=== PATIENT | female | born 1980 | race Caucasian/White ===

== ENCOUNTER 2016-06-15 19:28 | Emergency (ER) | payer OTHER ==
[2016-06-15] MEDS ORDERED: DIPHTH,PERTUSS(ACELL),TET VAC 0.5 ML VIAL IM ONE ×2 (19:38→20:43)
--- NOTE | 2016-06-15 20:40 | ERNOTE ---
Medical Problem HPI - Narrative Date of Service: 06/15/16 - General Chief Complaint: Laceration Time Seen by Provider: 06/15/16 19:58 Source: patient Exam Limitations: no limitations - Immun/Allergies/Home Medications Immunizations: IMMUNIZATION HX Immunizations Up to Date No History of Influenza Vaccine No Allergies/Adverse Reactions: Allergies No Known Drug Allergies Allergy (Verified 06/15/16 19:37) Home Medications: HOME MEDICATIONS Cephalexin Monohydrate [Keflex] 500 mg PO QID #40 cap 06/15/16 [Last Taken Unknown] - History of Present History Narrative: Pt. comes in with deep puncture wound of R hand that she received just prior to arrival with 1.2 x 0.4 cm opening with puncture moving medially 4cm from base of fifth to third phalanx. Pt. denies any SOB, CP, or numbness but does state that she is unable to extend her third finger completely and it feels heavy. Pt. denies any alleviating factors or prehospital treatment. Review of Systems - Review of Systems Constitutional: Present: no symptoms reported. Absent: recent illness, fever, chills, weakness, fatigue, malaise EYE: Present: no symptoms reported ENT: Present: no symptoms reported Respiratory: Present: no symptoms reported. Absent: shortness of breath, cough , wheezing Cardiology: Present: no symptoms reported Gastrointestinal/Abdominal: Present: no symptoms reported. Absent: nausea, vomiting, diarrhea Genitourinary: Present: no symptoms reported Musculoskeletal: Present: See HPI, joint swelling - third fourth and fifth knuckles, other - unable to extend third finger completely. Absent: back pain Skin: Present: other - laceration Neurological: Present: no symptoms reported. Absent: headache, dizziness/light- headedness, numbness, tingling All Other Systems: All systems neg except as marked - Patient's Past Medical History Patient History - Medical: No pertinent hx Patient History - Cardiac/Respiratory: No pertinent hx Patient History - Cancer: No Hx of Cancer Patient History - Surgical Procedures: Tubal Ligation Patient History - Other: None LMP (females 10-50): 2 weeks - Social History Living Situations: home Smoking Status: Current every day smoker Alcohol Use: occasionally Drug Use: none - Immunizations Immunizations Up to Date: No History of Influenza Vaccine: No Physical Exam - Physical Exam General Appearance: Present: wd/wn, alert, no apparent distress Eye Exam: Normal inspection: bilateral, PERRL: bilateral, EOMI: bilateral Ears, Nose, Throat: Present: normal ENT inspection, hearing grossly normal, normal pharynx Neck: Present: normal inspection, nontender. Absent: lymphadenopathy (R), lymphadenopathy (L) Respiratory: Present: no respiratory distress, normal breath sounds, no accessory muscle use, chest nontender, lungs clear Cardiovascular/Chest: Present: regular rate, rhythm, no murmur, normal peripheral pulses Back Exam: Present: normal inspection Extremity Exam: Present: extremity edema - dorsal R medial hand proximal to third fourth and fifth phalanx Neurological Exam: Present: alert, oriented, normal mood/affect, motor weakness - R third finger extension Skin Exam: Present: normal color, warm/dry, other - Laceration as described in ROS. Absent: pallor, skin rash ED Progress - Date and Time Seen: Date and Time: 06/15/16 20:34 Discussed case with esau bond and he recommends splinting third finger with ring and index finger and having pt. call office on friday for appointment. - Vital Signs Patient's Vital Signs:: I have reviewed the patient's vital signs. Vital Signs: Vital Signs 06/15/16 19:31 Temperature 37.1 C Pulse Rate 85 Respiratory 18 Rate Blood Pressure 133/68 O2 Sat by Pulse 98 Oximetry - X-Ray X-Ray #1 X-Ray: hand Interpretation: Interp. by me X-ray Comments: no acute ossious abnormality - Progress/Reassessment Chief Complaint: Laceration Progress:: Unchanged Departure - Departure Clinical Impression: Extensor tendon laceration of finger with open wound Qualifiers: Encounter type: initial encounter Qualified Code(s): S66.529A - Laceration of intrinsic muscle, fascia and tendon of unspecified finger at wrist and hand level, initial encounter; S61.209A - Unspecified open wound of unspecified finger without damage to nail, initial encounter Disposition: Home self-care Condition: Good Instructions: Laceration Care, Adult, [id number] Additional Instructions: Please keep wound clean and dry and folow up with orthopedics by calling office on Friday morning. Referrals: Esau Bond, PAC [[facility]] - Prescriptions: Cephalexin Monohydrate [Keflex] 500 mg PO QID #40 cap
[2016-06-15 21:17] VITALS: BP 114/79
== END 2016-06-15 21:00 | disposition home or self-care (01) ==
LOC: ER 19:28
PROC: 2W3JX1Z Immobilization of Right Finger using Splint (ICD-10-PCS; principal; 2016-06-15)
DX: S66.524A Laceration of intrinsic muscle, fascia and tendon of right ring finger at wrist and hand level, initial encounter (principal); S61.204A Unspecified open wound of right ring finger without damage to nail, initial encounter; F17.210 Nicotine dependence, cigarettes, uncomplicated; W26.0XXA Contact with knife, initial encounter; Y93.G1 Activity, food preparation and clean up; Z23 Encounter for immunization

== ENCOUNTER 2017-04-02 09:36 | Observation (INO) | payer SELFPAY ==
[2017-04-02 10:09] LABS: Urine Bilirubin Negative (NEGATIVE); Urine Blood Negative /ul (NEGATIVE); Urine Ketone Negative (NEGATIVE); Urine Nitrite Negative (NEGATIVE); Urine Protein Negative (NEGATIVE); Urine Specific Gravity <=1.005 SP.GR. (1.005-1.010); Urine Urobilinogen Normal (NORMAL)
[2017-04-02 10:25] LABS: Urine Appearance Clear; Urine Color Yellow
[2017-04-02 10:26] LABS: Urine Bacteria None Seen; Urine RBC None Seen /hpf (0-5); Urine WBC None Seen /hpf (0-5)
--- NOTE | 2017-04-02 10:36 | ERNOTE ---
Dizziness ER Record Date of Service: 04/02/17 Presenting Symptoms: near-fainting Time Seen by Provider: 04/02/17 10:01 Source: patient Exam Limitations: no limitations Immunizations: IMMUNIZATION HX Immunizations Up to Date Yes History of Influenza Vaccine No Hx Pneumococcal Vaccination No Allergies/Adverse Reactions: Allergies Allergy/AdvReac Type Severity Reaction Status Date / Time No Known Drug Allergies Allergy Verified 06/15/16 19:37 - History of Present Illness Narrative: Pt. comes in with c/o head pressure on the left side of her head that is intermittent and not consistent. Pt. states that symptoms started two days ago when she has a couple of seconds where she states that she felt "the world went in and out" and then everything was normal again. Pt. denies any SOB, CP, NVD, fever, recent illness or injury. Pt. states that the same "coming in and out" feeling has happened around 4 times this morning. Pt. denies that she is dizzy or if it changes with position but does states that it worsens with tactile stimulus and when she was putting on her mascara this morning. Timing and Duration: sudden onset, lasted greater than 3 hrs, intermittent Severity: max: severe Severity: currently: gone Associated Symptoms: Present: headache, light headedness. Absent: ringing/ roaring in ear, ear pain, nausea, vomiting, weakness, numbness, sweating, sense of confusion Sense of movement: Present: none Fainted/near fainted while:: Present: sitting Decreased ability to stand/walk:: Present: walks w/o assistance Usually:: Present: walks w/o assistance Modifying Factors - (Improves): Reports: nothing Modifying Factors - (Worsens): Reports: nothing Prior Treament: Denies: recently seen, treated by physician, recently hospitalized, similar symptoms before, currently on antibiotics Review of Systems - Review of Systems Constitutional: Present: no symptoms reported. Absent: recent illness, fever, chills, weakness, fatigue, malaise EYE: Present: no symptoms reported ENT: Present: no symptoms reported Respiratory: Present: no symptoms reported. Absent: shortness of breath, cough , wheezing Cardiology: Present: no symptoms reported. Absent: chest pain, palpitations, edema Gastrointestinal/Abdominal: Present: no symptoms reported. Absent: nausea, vomiting, diarrhea Genitourinary: Present: no symptoms reported. Absent: pain, decreased urinary output Musculoskeletal: Present: no symptoms reported. Absent: back pain, joint pain Skin: Present: no symptoms reported. Absent: rash, change in hair/nails Neurological: Present: dizziness/light-headedness, other - head pressure. Absent: anxiety, depressed, headache, seizure, weakness, numbness, tingling, tremors All Other Systems: All systems neg except as marked - Patient's Past Medical History Patient History - Medical: No pertinent hx Patient History - Cardiac/Respiratory: No pertinent hx Patient History - Cancer: No Hx of Cancer Patient History - Surgical Procedures: Tubal Ligation, Other Patient History - Other: None LMP (females 10-50): last week - Social History Living Situations: significant other Abuse History: No History of abuse Psych History: No pertinent hx Smoking Status: Current every day smoker Have you smoked in the past 12 months: Yes Do you dip or chew tobacco: No Alcohol Use: occasionally Drug Use: none - Immunizations Immunizations Up to Date: Yes Hx Pneumococcal Vaccination: No History of Influenza Vaccine: No Physical Exam - Physical Exam General Appearance: Present: wd/wn, alert, no apparent distress Head Exam: Present: normal inspection, no evidence of injury, no tenderness w palpation Eye Exam: Normal inspection: bilateral, PERRL: bilateral, EOMI: bilateral, Other : bilateral - nystagmus Ears, Nose, Throat: Present: normal ENT inspection, normal pharynx Neck: Present: normal inspection, nontender, supple, full range of motion. Absent: lymphadenopathy (R), lymphadenopathy (L) Respiratory: Present: no respiratory distress, normal breath sounds, no accessory muscle use, chest nontender, lungs clear Cardiovascular/Chest: Present: regular rate, rhythm, no murmur, normal peripheral pulses Gastrointestinal/Abdominal: Present: normal bowel sounds, nontender, nondistended, soft, no organomegaly Back Exam: Present: normal inspection, normal range of motion, no CVA tenderness , no vertebral tenderness Extremity Exam: Present: normal inspection, non-tender, normal range of motion, no edema Neurological Exam: Present: alert, oriented, normal mood/affect, no motor/ sensory deficits, technology officer II-XII nml as tested, normal cerebellar test, other - HINTS exam WNL, Burket-Hallpike WNL, Rhomberg WNL Skin Exam: Present: normal color, warm/dry. Absent: pallor, skin rash Lymphatic Exam: Present: no adenopathy ED Progress - Date and Time Seen: Date and Time: 04/02/17 11:[address] Gibbs and as pt. does not have primary provider it would be best to admit pt. to evaluate for lacunar infarct. Discussed with Susan with case management and as pt. agrees to this we will admit for observation so she can get further testing to evaluate for possible stroke. - Results and Orders Patient's Lab Results:: I have reviewed the patient's lab results. - Vital Signs Patient's Vital Signs:: I have reviewed the patient's vital signs. Vital Signs: Vital Signs 04/02/17 04/02/17 09:44 10:01 Temperature 36.6 C Pulse Rate 82 87 Respiratory 16 Rate Blood Pressure 146/74 - EKG EKG: NSR EKG read: Reviewed by me EKG Comments: Interp by Dr Olson - X-Ray X-Ray #1 X-Ray: chest Interpretation: Reviewed by me X-ray Comments: NO acute CP process. - CT/Ultrasound CT/Ultrasound Narrative: CT scan with possible lacunar infarct vs vascular abnormally - Progress/Reassessment Chief Complaint: Dizziness Progress:: Unchanged Departure Clinical Impression: Near syncope, Lacunar infarct, acute - Departure [facility] Condition: Fair
[2017-04-02 10:40] LABS: Hematocrit 39.3 % (37.0-47.0); Hemoglobin 12.5 gm/dL (12.5-16.0); Mean Corpuscular Hemoglobin 24.8 pg (27-31); Mean Corpuscular Hgb Conc 31.8 g/dl (32-36); Mean Platelet Volume 10.1 fl (6.0-9.5); Neutrophil # 5.9 K/mm3 (1.3-6.0); Platelet Count 286 K/mm3 (150-450); Red Blood Count 5.04 M/mm3 (4.2-5.4); Red Cell Distribution Width 12.9 % (11.5-14.0); White Blood Count 8.1 K/mm3 (4.0-10.5)
[2017-04-02 10:48] LABS: Albumin * 4.1 gm/dl (3.4-5.0); Anion Gap 11.5 mmol/L (6.8-13.8); BUN/Creatinine Ratio 15.8 (9.0-21.6); Bilirubin, Total 0.2 mg/dL (0.0-1.1); Ca. Corrected For Albumin 9.1 mg/dL (8.4-10.2); Calcium * 9.5 mg/dL (7.9-10.9); Carbon Dioxide 27.5 mmol/L (24-32.6); Total Protein 8.2 gm/dL (6.2-8.2)
[2017-04-02] MEDS ORDERED: ACETAMINOPHEN 325 MG TABLET PO PRN (16:01)
--- NOTE | 2017-04-02 20:28 | HP ---
Chief Complaint - Chief Complaint Date of Service: 04/02/17 Time of Service: 20:28 Chief Complaint: " blacking out, dizzy". Source of HPI- Pt; reliable, ERP notes. History of Present Illness: Ms. Roberts is a 36-yr-old W[place] pt with no pertinent medical history. Pt states that two days ago while sitting down talking to her friend, she "suddenly blacked out for about 5 seconds." Then today while driving home after dropping her child to school, she had a feeling of dizziness and describes this as her head "feeling full." Later today while standing taking a shower, she felt as though she was going to "pass out." This happened again when she was standing applying her make-up. She became worried with the 4th episode and called the emergency squad to be brought to the hospital. She denies the associated symptoms of: N/V, Headache, Double vision, palpitations, Diaphoresis, SOB & Chest pain. At the ED, lab studies involving CBC, BMP,Troponin & UA, were all unremarkable. There were no acute findings on the CXR also. V.S-36.6,82,16,146/ 74 & 99% RA. The EKG showed NSR. However,the head CT had findings concerning for remote lacunar infarct. The patient will be admitted under observation status for telemetry monitoring and will plan on obtaining MRI of the brain in am. - Patient's Past Medical History Patient History - Medical: Anemia Patient History - Cardiac/Respiratory: No pertinent hx Patient History - Cancer: No Hx of Cancer Patient History - Surgical Procedures: Tubal Ligation, Other Patient History - Other: None LMP (females 10-50): last week LMP (Calendar): 03/28/17 - Family History Father Family History - Medical: - at 64 yrs, Other - Emphysema Family History - Cancer: No pertinent family hx Sister Family History - Medical: , No pertinent hx Family History - Cardiac/Respiratory: No pertinent hx Family History - Cancer: Breast Mother Family History - Medical: No pertinent hx Family History - Cardiac/Respiratory: No pertinent hx Family History - Cancer: No pertinent family hx - Social History Living Situations: significant other Abuse History: No History of abuse Psych History: No pertinent hx Smoking Status: Current every day smoker Have you smoked in the past 12 months: Yes Do you dip or chew tobacco: No Patient requests Smoking Cessation Consult: No Initiate information on Smoking Cessation: Yes Alcohol Use: occasionally Drug Use: none - Immunizations Immunizations Up to Date: Yes Hx Pneumococcal Vaccination: No History of Influenza Vaccine: No Review Of Systems (GEN) - Review of Systems Generalized/Overall Review: Absent: Weakness, Chills, Fever, Malaise, Diaphoresis EENTM: Absent: Eye Pain, Blurred Vision, Tearing, Double Vision Respiratory: Absent: Cough, Shortness of Breath, Orthopnea Cardiac: Present: Syncope. Absent: Chest Pain, Edema, Palpitations Abdominal: Absent: Nausea, Vomiting, Hematemesis, Abdominal Pain, Constipation, Diarrhea, Melena Genitourinary: Absent: Burning, Itching, Urgency, Frequency, Dribbling, Incontinent, Retention Musculoskeletal: Absent: Joint Pain, Back Pain, Joint Swelling Neurological: Absent: Headache, Anxiety, Depressed, Emotional Problems, Numbness , Parasthesia, Pre-existing Deficit Skin: Absent: Dryness, Lesions, Lumps Endocrine: Absent: Intolerance to Cold, Intolerance to Heat, Excessive Sweating , Increased Hunger, Increased Thirst Misc: All systems neg except as marked Allergies/Adverse Reactions: Allergies Allergy/AdvReac Type Severity Reaction Status Date / Time No Known Drug Allergies Allergy Verified 04/02/17 14:35 Home Medications: HOME MEDICATIONS Ibuprofen 400 - 600 mg PO Q6H PRN 04/02/17 [Last Taken Unknown] Exam - Exam Vital Signs: Vital Signs - Last Taken Temp 36.5 C 04/02/17 19:08 Pulse 73 04/02/17 19:08 Resp 18 04/02/17 19:08 BP 116/65 04/02/17 19:08 Pulse Ox 97 04/02/17 19:08 Constitutional: Present: Alert, Oriented x3, Cooperative, No distress ENT Exam: Present: normal ENT inspection, hearing grossly normal. Absent: nasal drainage, pharyngeal erythema Eye Exam: bilateral eye: normal inspection, PERRL Neck: Present: non-tender, full range of motion, supple Back Exam: Present: normal inspection Breasts: Present: Exam deferred Respiratory: Present: lungs clear, No rales, No wheezing Cardiovascular/Chest: Present: normal peripheral pulses, regular rate, rhythm, no edema Abdomen: Present: Normal bowel sounds, soft, nontender, nondistended /Rectal: Present: Exam deferred Extremity: Present: normal range of motion, non-tender, normal inspection Skin Exam: Present: warm/dry, no cyanosis Lymphatic: Present: no adenopathy Neurologic: Present: alert, normal mood/affect, oriented x 3 Appearance: Present: appropriate appearance, appropriate insight Eye contact: Present: cooperative, good eye contact, normal speech Thoughts: Present: normal thought pattern, no apparent hallucination Diagnostic Studies: Laboratory Results WBC 8.1 K/mm3 (4.0-10.5) 04/02/17 10:20 RBC 5.04 M/mm3 (4.2-5.4) 04/02/17 10:20 Hgb 12.5 gm/dL (12.5-16.0) 04/02/17 10:20 Hct 39.3 % (37.0-47.0) 04/02/17 10:20 MCV 78.0 fl (78-100) 04/02/17 10:20 MCH 24.8 pg (27-31) L 04/02/17 10:20 MCHC 31.8 g/dl (32-36) L 04/02/17 10:20 RDW 12.9 % (11.5-14.0) 04/02/17 10:20 Plt Count 286 K/mm3 (150-450) 04/02/17 10:20 MPV 10.1 fl (6.0-9.5) H 04/02/17 10:20 Immature Gran % (Auto) 0.70 % (0.001-0.429) H 04/02/17 10:20 Immature Gran # (Auto) 0.06 K/mm3 (0.000-0.0310) H 04/02/17 10:20 Neutrophils % 73.0 % (42-75.0) 04/02/17 10:20 Lymphocytes % 18.6 % (20-51) L 04/02/17 10:20 Monocytes % 5.7 % (0.0-9) 04/02/17 10:20 Eosinophils % 1.6 % (0.0-3.0) 04/02/17 10:20 Basophils % 0.4 % (0.0-1.0) 04/02/17 10:20 Nucleated RBC % 0.0 k/mm3 (0-1) 04/02/17 10:20 Neutrophils # 5.9 K/mm3 (1.3-6.0) 04/02/17 10:20 Lymphocytes # 1.5 k/mm3 (1.5-3.5) 04/02/17 10:20 Monocytes # 0.5 k/mm3 (0.0-1.0) 04/02/17 10:20 Eosinophils # 0.1 k/mm3 (0.0-0.7) 04/02/17 10:20 Absolute Basophils 0.0 k/mm3 (0.0-0.1) 04/02/17 10:20 Sodium 138 mmol/L (132-142) 04/02/17 10:20 Plasma Sodium 138 mmol/L (130-142) 04/02/17 10:20 Potassium 4.0 mmol/L (3.4-4.6) 04/02/17 10:20 Chloride 103 mmol/L (97-106) 04/02/17 10:20 Carbon Dioxide 27.5 mmol/L (24-32.6) 04/02/17 10:20 Anion Gap 11.5 mmol/L (6.8-13.8) 04/02/17 10:20 BUN 12 mg/dL (3-23) 04/02/17 10:20 Creatinine 0.76 mg/dL (0.4-1.4) 04/02/17 10:20 Est GFR (Non-Af Amer) 92 mL/min (60-130) 04/02/17 10:20 BUN/Creatinine Ratio 15.8 (9.0-21.6) 04/02/17 10:20 Random Glucose 106 mg/dL (70-110) 04/02/17 10:20 Calcium 9.5 mg/dL (7.9-10.9) 04/02/17 10:20 Calcium Adj for Albumin 9.1 mg/dL (8.4-10.2) 04/02/17 10:20 Total Bilirubin 0.2 mg/dL (0.0-1.1) 04/02/17 10:20 AST 19 U/L (0-48) 04/02/17 10:20 ALT 31 U/L (19-67) 04/02/17 10:20 Alkaline Phosphatase 57 U/L (50-170) 04/02/17 10:20 Total Protein 8.2 gm/dL (6.2-8.2) 04/02/17 10:20 Albumin 4.1 gm/dl (3.4-5.0) 04/02/17 10:20 Urine Color Yellow 04/02/17 10:00 Urine Appearance Clear 04/02/17 10:00 Urine pH 6.0 pH (5.0-7.0) 04/02/17 10:00 Ur Specific [place] <=1.005 SP.GR. (1.005-1.010) 04/02/17 10:00 Urine Protein Negative mg/dL (NEGATIVE) 04/02/17 10:00 Urine Glucose (UA) Negative mg/dL (NEGATIVE) 04/02/17 10:00 Urine Ketones Negative mg/dL (NEGATIVE) 04/02/17 10:00 Urine Blood Negative /ul (NEGATIVE) 04/02/17 10:00 Urine Nitrate Negative (NEGATIVE) 04/02/17 10:00 Urine Bilirubin Negative mg/dl (NEGATIVE) 04/02/17 10:00 Urine Urobilinogen Normal EU/dl (NORMAL) 04/02/17 10:00 Ur Leukocyte Esterase Negative /ul (NEGATIVE) 04/02/17 10:00 Urine RBC None seen /hpf (0-5) 04/02/17 10:00 Urine WBC None seen /hpf (0-5) 04/02/17 10:00 Ur Epithelial Cells 0-5 /hpf (0-5) 04/02/17 10:00 Urine Bacteria None seen (NONE) 04/02/17 10:00 Urine Culture Comments No culture indicated 04/02/17 10:00 Urine HCG, Qual Negative (NEGATIVE) 04/02/17 10:13 Assessment/Plan - Assessment/Plan (1) Syncope Assessment: Pt presented with c/c of a syncope event lasting up to 5 seconds. It is unlikely Orthostatic syncope as there was no > 20 mm HG decline in BP immediately on standing. The EKG showed NSR. She will be placed on telemetry monitoring to see if any arrhythmias is a contributing factor and will plan on discharging her on a holter monitor to screen for arrhythmias or to determine if this is cardiac related syncope. Could also be vasal vagal syncope from: prolonged standing, hot showers/environment & volume depletion- Will provide teaching on awareness and avoidance of triggers of vasovagal syncope prior to discharge. Problem: Acute (2) Lacunar infarct, acute Assessment: CT of the head had findings concerning for Lacuna infarct. Will need MRI of the brain as many lacunar infarcts are not recognized clinically and are detected incidentally on imaging studies. She has no deficits involving unilateral weakness, difficulty with speech, facial weakness, and paresthesias. Will await MRI results. Problem: Acute
[2017-04-03] MEDS ORDERED: CALCIUM CARBONATE 500 MG TAB.CHEW PO PRN (03:47)
[2017-04-03 10:50] VITALS: BP 117/68
--- NOTE | 2017-04-03 13:19 | DS ---
(1) Near syncope Problem: Acute Description of Stay: ADMISSION DATE: 04/02/2017 DISCHARGE DATE: 04/03/2017 ADMISSION HPI by ZEESHAN Kenyon: Ms. Roberts is a 36-yr-old WF pt with no pertinent medical history. Pt states that two days ago while sitting down talking to her friend, she "suddenly blacked out for about 5 seconds." Then today while driving home after dropping her child to school, she had a feeling of dizziness and describes this as her head "feeling full." Later today while standing taking a shower, she felt as though she was going to "pass out." This happened again when she was standing applying her make-up. She became worried with the 4th episode and called the emergency squad to be brought to the hospital. She denies the associated symptoms of: N/V, Headache, Double vision, palpitations, Diaphoresis, SOB & Chest pain. At the ED, lab studies involving CBC, BMP,Troponin & UA, were all unremarkable. There were no acute findings on the CXR also. V.S-36.6,82,16,146/ 74 & 99% RA. The EKG showed NSR. However,the head CT had findings concerning for remote lacunar infarct. The patient will be admitted under observation status for telemetry monitoring and will plan on obtaining MRI of the brain in am. HOSPITAL COURSE: The patient was admitted to the hospital for presyncope/syncope. Workup completed during the patients hospitalization was unremarkable. We have set the patient up for 48 hour Holter monitor following discharge. She was discharged home in stable condition and instructed to follow-up with Dr. Gibbs within 1 week to discuss the results of the Holter monitor. FOLLOW-UP APPOINTMENTS: -Dr. Gibbs within 1 week NEW OR CHANGED MEDICATIONS: None DISCONTINUED MEDICATIONS: None RADIOLOGY REPORTS: PA and lateral chest x-ray on 04/02/2017: No acute cardiopulmonary disease identified. Head CT without contrast on 04/02/2017: Focal hypodensity right basal ganglia may be incidental prominent perivascular space but could represent remote lacunar infarct. No acute intracranial pathology otherwise identified. Brain MRI with and without contrast on 11:30 children 17: No acute intracranial process. Small focal areas in the basal aspect of the right and left basal ganglia, which matches CSF. This most likely reflects prominent CSF spaces, but small chronic lacunar infarcts cannot be totally excluded. Procedures Performed: none Discharge Disposition: Home self care Disposition: Home self-care Condition: Stable Discharge Activity: Activity as tolerated Discharge Diet: General/regular food Problem Oriented Discharge Instructions to Patient/Family: Syncope, Easy-to- Read Additional Patient Instructions (free text): Follow-up with Dr. Gibbs next week for hospital follow-up and to discuss results of Holter monitor Follow up appointment with on 04/10/17 at 3:00pm Complete Home Medications List: Complete Home Medication List: Ibuprofen 400 - 600 mg PO Q6H PRN 04/02/17 Amb Orders for Discharge: Holter Monitor Location: Determined By Patient
== END 2017-04-03 14:01 | disposition home or self-care (01) ==
LOC: ER 09:36 → MS 11:59
PROVIDERS: ADMIT Internal Medicine; ATTEND Internal Medicine
DX: R55 Syncope and collapse (principal); F17.210 Nicotine dependence, cigarettes, uncomplicated; Z68.28 Body mass index [BMI] 28.0-28.9, adult
CPT/HCPCS: 36415; 70450; 70553; 71020; 80053; 81001; 84484; 84703; 85025; 93005; 99285; G0378